=== PATIENT | male | born 1990 | race Two or more races ===

== ENCOUNTER 2022-08-28 16:48 | Emergency (ER) | payer OTHER ==
[~2022-08-28] VITALS: Ht 177.8 cm; Wt 77.1 kg
== END 2022-08-28 19:25 | disposition home or self-care (01) ==
LOC: ER 16:48
DX: J06.9 Acute upper respiratory infection, unspecified (principal)

== ENCOUNTER 2022-09-28 10:33 | Emergency (ER) | payer OTHER ==
[~2022-09-28] VITALS: Ht 177.8 cm; Wt 81.6 kg
== END 2022-09-28 15:54 | disposition left against medical advice (07) ==
LOC: ER 10:33
DX: R42 Dizziness and giddiness (principal)

== ENCOUNTER 2022-09-28 16:47 | Emergency (ER) | payer OTHER ==
[~2022-09-28] VITALS: Ht 180.3 cm; Wt 81.2 kg
== END 2022-09-28 18:23 | disposition home or self-care (01) ==
LOC: ER 16:47
DX: R51.9 Headache, unspecified (principal)

== ENCOUNTER 2023-05-02 00:32 | Emergency (ER) | payer OTHER ==
[~2023-05-02] VITALS: Ht 208.3 cm; Wt 81.6 kg
== END 2023-05-02 05:24 | disposition home or self-care (01) ==
LOC: ER 00:32
DX: J06.9 Acute upper respiratory infection, unspecified (principal); Z20.822 Contact with and (suspected) exposure to COVID-19